=== PATIENT | female | born 1985 | race Caucasian/White ===

== ENCOUNTER → 2016-11-20 | Outpatient (CLI) | payer OTHER | LOC: KOH-I 15:49 | DX: R10.9 Unspecified abdominal pain (principal); K59.00 Constipation, unspecified | CPT/HCPCS: 74000 ==

== ENCOUNTER 2021-03-25 07:07 | Emergency (ER) | payer OTHER ==
[2021-03-25 08:06] LABS: RED BLOOD COUNT 3.88 M/UL (4.00-5.10); WHITE BLOOD COUNT 7.1 K/UL (4.5-11.0)
[2021-03-25 08:34] LABS: BUN/CREATININE RATIO 11 (0-10)
[2021-03-25] MEDS ORDERED: OMNICEF 300 MG300 MG PO (10:46)
== END 2021-03-25 11:15 | disposition home or self-care (01) ==
LOC: ER1 07:07
PROVIDERS: Physician Assistant
DX: N39.0 Urinary tract infection, site not specified (principal); K59.00 Constipation, unspecified; N83.202 Unspecified ovarian cyst, left side; N83.201 Unspecified ovarian cyst, right side
CPT/HCPCS: 80053; 81001; 84703; 85025; 99284; Q9967

== ENCOUNTER → 2022-04-16 | Outpatient (CLI) | payer OTHER ==
[~2022-04-16] MED LIST: OMNICEF 300 MG300 MG PO
== END ==
LOC: LAB 16:46
DX: Z20.822 Contact with and (suspected) exposure to COVID-19 (principal)
CPT/HCPCS: U0002